=== PATIENT | female | born 1980 ===

== ENCOUNTER 2025-06-02 14:00 | Outpatient (AMB) | payer OTHER, SELFPAY ==
--- OUTSIDE RECORDS SUMMARY | 2025-06-02 15:19 | XMS_ITS | Clinical Summary ---
Author Organization [facility] [address] [facility] lding Address [address] [place] [address] Phone Care Team Providers Care Director Of Social Media Marketing Name Role Phone Delmis English MD Primary Care Prov ider Allergies Active Allergy Reactions Criticality Noted Date Comments House Dust Runny nose 07/26/2022 Pollen Extracts Runny nose 01/04/2021 Seasonal allergies Sulfamethoxazole-Trimetho prim Dermatitis,Rash 06/14/2014 Medications loratadine (CLARITIN) 10 mg tablet Take 10 mg by mouth daily. Active UNABLE TO FIND Inject as directed. Active cetirizine (ZyrTEC) 10 mg tablet Take 10 mg by mouth daily. Active citalopram (CeleXA) 20 mg tablet Take 1 tablet (20 mg total) by mouth 1 (one) time each day. 90 each 1 02/21/20 25 025 Active ferrous sulfate 325 mg (65 mg iron) EC tablet TAKE 1 TABLET (325 MG TOTAL) BY MOUTH DAILY WITH BREAKFAST DO NOT CRUSH, CHEW, OR SPLIT 90 tablet 1 06/01/20 25 Active ferrous sulfate 325 mg (65 mg iron) EC tablet Take 1 tablet (325 mg total) by mouth 1 (one) time each day with breakfast. Do not crush, chew, or split. 30 each 2 03/10/20 25 025 Discontinued Active Problems Problem Noted Date Diagnosed Date Iron deficiency anemia due to chronic blood loss 03/13/2025 COVID-19 virus infection 01/25/2022 Overview (08/11/2024): 01/23/2022 Seasonal allergies 06/10/2021 Depression 07/04/2019 Anxiety 07/04/2019 Encounters Date Type Department Care Team Description 03/20/2025 12:53 PM EDT - 03/20/2025 11:59 PM EDT Hospital Encounter [facility] [address] [place] [phone] Neema García MD Iron deficiency anemia due to chronic blood loss (Primary Dx) Discharge Disposition: Home or Self Care 03/13/2025 2:00 PM EDT - 03/13/2025 11:59 PM EDT Hospital Encounter [facility] [address] [place] [phone] Iron deficiency anemia due to chronic blood loss (Primary Dx) Discharge Disposition: Home or Self Care 03/13/2025 1:30 PM EDT Office Visit [facility] Hematology Oncology [address] [place] [phone] Demetra Hernandez PA Iron deficiency anemia due to chronic blood loss (Primary Dx); Menorrhagia with regular cycle; Gingivitis 03/12/2025 Telephone [facility] Hematology Oncology [address] [place] [phone] Demetra Hernandez PA 03/03/2025 4:15 PM EDT Lab Draw Station - [address] [phone] Anemia, unspecified type from Last 3 Months Immunizations Name Administration Dates Next Due Influenza Quadravalent, MDCK , 0.5ml, preservative free (Flucelvax) 6mo and older 07/26/2022,07/01/2020 Influenza trivalent, 0.5mL, preservative free (Fluarix; FluLaval; Fluzone) ages 6mo and older (Afluria) 3 years and older 07/04/2023,07/20/2019 Influenza trivalent, with pr eservative (Fluzone; Afluria) 6mo and older 08/13/2014 Pfizer SARS-CoV-2 COVID-19, mRNA, LNP-S, preservative free 01/31/2021,01/09/2021 Tdap Tetanus diptheria acell ular pertussis (Boostrix; Adacel) 7yo and older 02/07/2022 Surgical History Surgery Date Site/Laterality Comments APPENDECTOMY 1994 PROCEDURE: [place] APPENDECTOMY EYE SURGERY 2009 PROCEDURE: [place] TRABECULOPLASTY BY LASER SURGERY Medical History Medical History Date Comments Allergies 06/10/2021 DX:Allergies Granuloma annulare DX:Granuloma annulare Family History Medical History Relation Name Comments Eczema Brother Throat cancer Father Coronary artery disease Maternal Grandfather stroke, macular degeneration Stroke Maternal Grandmother Thyroid disease Maternal Grandmother Other: anxiety Mother joint problem s Prostate cancer Other cousin Relation Name Status Comments Brother Father Maternal Grandfather Alive Maternal Grandmother Mother Alive Other cousin Alive Social History Tobacco Use Types Packs/Day Years Used Date Smoking Tobacco: Never Smokeless Tobacco: Never Tobacco Cessation:Counseling Given: No Alcohol Use Standard Drinks/Week Comments Yes 0 (1 standard drink = 0.6 oz pur e alcohol) Comments No Sex and Gender Information Value Date Recorded Sex Assigned at Female 03/13/2025 2:10 PM EDT Legal Sex Female 8:37 PM EST Gender Identity Female 03/11/2025 6:45 PM EDT Sexual Orientation Straight 03/13/2025 2: 10 PM EDT Obstetrics History Last Filed Vital Signs Vital Sign Reading Time Taken Comments Blood Pressure 104/60 03/20/2025 1:04 PM EDT Pulse 66 03/20/2025 1:04 PM EDT Temperature 37 C (98.6 F) 03/20/2025 1:04 PM EDT Respiratory Rate 16 03/20/2025 1:04 PM EDT Oxygen Saturation 99% 03/20/2025 1:04 PM EDT Inhaled Oxygen Concentration - - Weight 68 kg (150 lb) 03/13/2025 2:15 PM EDT Height 157.5 cm (5' 2 ) 03/13/2025 1:35 PM EDT Body Mass Index 27.44 03/13/2025 1:35 PM EDT Plan of Treatment Upcoming Encounters Date Type Department Care Team (Late st Contact Info) Description 06/08/2025 9:30 AM EDT Office Visit [facility] Hematology Oncology [address] [place] [phone] Demetra Hernandez PA [address] [place] [address] 08/24/2025 12:15 PM EST Office Visit Adult Medicine - [place] [address] [place] [phone] Janeen Vivas PA [address] [place] [address] Health Maintenance Due Date Last Done Comments Breast Cancer Screening 1981 Hepatitis B Vaccines (1 of 3 - 19+ 3-dose series) 02/18/2000 HIV Screening 09/23/2022 Hepatitis C Screening 09/23/2022 Social Influencers of Health Screening 09/23/2022 Cervical Cancer Screening: Pap Smear 11/30/2023 11/30/2020 COVID-19 Vaccine ( season) 2024 07/04/2023, 08/11/2021, 01/31/2021, Additional history exists Depression Screening 10/15/2024 Influenza Vaccine (#1) 2025 , 07/26/2022, 07/01/2020, Additional history exists Cholesterol Screening (Lipid Panel) 02/23/2030 02/23/2025, 02/08/2024, 02/08/2024 DTaP,Tdap,and Td Vaccines (2 - Td or Tdap) 02/08/2032 02/07/2022 HIB Vaccines Aged Out No longer eligi ble based on patient's age to complete this topic HPV Vaccines Aged Out No longer eligi ble based on patient's age to complete this topic Hepatitis A Vaccines Aged Out No long er eligible based on patient's age to complete this topic IPV Vaccines Aged Out No longer eligi ble based on patient's age to complete this topic MMR Vaccines Aged Out No longer eligi ble based on patient's age to complete this topic Meningococcal ACWY Vaccine Aged Out N o longer eligible based on patient's age to complete this topic Meningococcal B Vaccine Aged Out No l onger eligible based on patient's age to complete this topic Pneumococcal Vaccine: Pediatrics (0 to 5 Years) and At-Risk Patients (6 to 49 Years) Aged Out No longer eligible based on patient's age to complete this topic RSV Immunization Patients Under 20 months Aged Out No longer eligible based on patient's age to complete this topic Varicella Vaccines Aged Out No longer eligible based on patient's age to complete this topic Procedures Procedure Name Priority Date/Time Associated Diagnosis Comments FERRITIN Routine 03/03/2025 4:14 PM EDT Anemia, unspecified type IRON AND TIBC Routine 03/03/2025 4:14 PM EDT Anemia, unspecified type LIPID PANEL WITH REFLEX TO DIRECT LDL Routine 02/23/2025 9:06 AM EDT Routine general medical examination at a [facility] HM PAP SMEAR Routine 11/30/2020 from Last 3 Months or Most Recently Relevant to Health Maintenance Results * (ABNORMAL) Iron and TIBC (03/03/2025 4:14 PM EDT) Iron 22(L) 40 - 150 mcg/dL LAB CHEMISTRY METHOD 03/03/2025 6:32 PM EDT [facility] TIBC 445 250 - 450 mcg/dL LAB CHEMISTRY METHOD 03/03/2025 6:32 PM EDT [facility] Iron Saturation 5(L) 15 - 50 % LAB CHEMISTRY METHOD 03/03/2025 6:32 PM EDT [facility] Blood Venous blood specimen / Unknown Venipuncture / Unknown 03/03/2025 4:14 PM EDT 03/03/2025 4:14 PM EDT us Janeen PINEDA LAB BLOOD ORDERABLES Final Result [facility] [address] [place] [address], [place] [phone] * (ABNORMAL) Ferritin (03/03/2025 4:14 PM EDT) Ferritin 5(L) 8 - 252 ng/mL LAB CHEMISTRY METHOD 03/03/2025 6:40 PM EDT [facility] Blood Venous blood specimen / Unknown Venipuncture / Unknown 03/03/2025 4:14 PM EDT 03/03/2025 4:14 PM EDT us Janeen PINEDA LAB BLOOD ORDERABLES Final Result [facility] [address] [place] [address], [place] [phone] * (ABNORMAL) Lipid panel with reflex to direct LDL (02/23/2025 9:06 AM EDT) Cholesterol 209(H) 0 - 200 mg/dL LAB CHEMISTRY METHOD 02/23/2025 1:37 PM EDT [facility] Triglycerides 63 0 - 150 mg/dL LAB CHEMISTRY METHOD 02/23/2025 1:37 PM EDT [facility] HDL 65 >=40 mg/dL LAB CHEMISTRY METHOD 02/23/2025 1:37 PM EDT [facility] LDL Calculated 131(H) 0 - 100 mg/dL LAB CHEMISTRY METHOD 02/23/2025 1:37 PM EDT [facility] VLDL Cholesterol Darryl 12.6 mg/dL LAB CHEMISTRY METHOD 02/23/2025 1:37 PM EDT [facility] Non HDL Chol. (LDL+VLDL) 144 <145 mg/dL LAB CHEMISTRY METHOD 02/23/2025 1:37 PM EDT [facility] Chol/HDL Ratio 3.2 0.0 - 4.4 LAB CHEMISTRY METHOD [facility] Blood Venous blood specimen / Unknown Venipuncture / Unknown 02/23/2025 9:06 AM EDT 02/23/2025 9:10 AM EDT us Janeen PINEDA LAB BLOOD ORDERABLES Final Result [facility] [address] [place] [address], * Pap Smear (11/30/2020) HM Pap smear abstracted,no interpretation us Historical Provider MD HEALTH MAINTENANCE Final Result from Last 3 Months or Most Recently Relevant to Health Maintenance Insurance [facility] Care Teams Director Of Social Media Marketing Relationship Specialty Start Date End Date Delmis English MD [address] [place] [address] [place] [address] PCP - General Internal Medicine 05/20/21
== END 2025-06-02 14:04 | disposition home or self-care (01) ==
LOC: HO.HMGAL 14:00
PROVIDERS: PCP Internal Medicine; Visit Provider Registered Nurse Emergency
DX: J30.89 Other allergic rhinitis (principal)
CPT/HCPCS: 95117; 95165

== ENCOUNTER 2025-07-08 15:40 | Outpatient (AMB) | payer OTHER, SELFPAY ==
--- OUTSIDE RECORDS SUMMARY | 2025-07-08 17:54 | XMS_ITS | Clinical Summary ---
Author Organization [facility] [address] [facility] lding Address [address] [place] [phone] Phone Care Team Providers Care Gutter Mouth Cutter Name Role Phone Delmis English MD Primary Care Prov ider Allergies Active Allergy Reactions Criticality Noted Date Comments House Dust Runny nose 07/26/2022 Pollen Extracts Runny nose 01/04/2021 Seasonal allergies Sulfamethoxazole-Trimetho prim Dermatitis,Rash 06/14/2014 Medications cetirizine (ZyrTEC) 10 mg tablet Take 10 mg by mouth daily. Active citalopram (CeleXA) 20 mg tablet Take 1 tablet (20 mg total) by mouth 1 (one) time each day. 90 each 1 5 08/19/20 25 Active levonorgestreL (MIRENA) 21 mcg/24hr (up to 8 yrs) 52 mg IUD 1 Device (1 each total) by intrauterine route 1 (one) time. HORMONAL IUD INSERTED ON 06/03/25 Active ferrous sulfate 325 mg (65 mg iron) EC tablet Take 1 tablet (325 mg total) by mouth 1 (one) time each day with breakfast. Do not crush, chew, or split. 90 tablet 1 5 12/05/19 26 Active Active Problems Problem Noted Date Diagnosed Date Iron deficiency anemia due to chronic blood loss 03/13/2025 COVID-19 virus infection 01/25/2022 Overview (08/11/2024): 01/23/2022 Seasonal allergies 06/10/2021 Depression 07/04/2019 Anxiety 07/04/2019 Encounters Date Type Department Care Team Description 06/08/2025 9:30 AM EDT Office Visit [facility] Hematology Oncology [address] [place] [phone] Demetra Hernandez PA Iron deficiency anemia due to chronic blood loss (Primary Dx); Menorrhagia with regular cycle from Last 3 Months Immunizations Name Administration Dates Next Due Influenza Quadravalent, MDCK , 0.5ml, preservative free (Flucelvax) 6mo and older 07/26/2022,07/01/2020 Influenza trivalent, 0.5mL, preservative free (Fluarix; FluLaval; Fluzone) ages 6mo and older (Afluria) 3 years and older 07/04/2023,07/20/2019 Influenza trivalent, with pr eservative (Fluzone; Afluria) 6mo and older 08/13/2014 [employer] SARS-CoV-2 COVID-19, mRNA, LNP-S, preservative free 01/31/2021,01/09/2021 Tdap Tetanus diptheria acell ular pertussis (Boostrix; Adacel) 7yo and older 02/07/2022 Surgical History Surgery Date Site/Laterality Comments APPENDECTOMY 1994 PROCEDURE: [place] APPENDECTOMY EYE SURGERY 2009 PROCEDURE: [place] TRABECULOPLASTY BY LASER SURGERY Medical History Medical [...] Sign Reading Time Taken Comments Blood Pressure 97/61 06/08/2025 9:31 AM EDT Pulse 70 06/08/2025 9:31 AM EDT Temperature 36.7 C (98.1 F) 06/08/2025 9:31 AM EDT Respiratory Rate 16 03/20/2025 1:04 PM EDT Oxygen Saturation 100% 06/08/2025 9:31 AM EDT Inhaled Oxygen Concentration - - Weight 70.3 kg (155 lb) 06/08/2025 9:31 AM EDT Height 157.5 cm (5' 2 ) 03/13/2025 1:35 PM EDT Body Mass Index 28.35 03/13/2025 1:35 PM EDT Plan of Treatment Upcoming Encounters Date Type Department Care Team (Late st Contact Info) Description 08/24/2025 12:30 PM EST Office Visit Adult Medicine [facility] [address] [place] [phone] Janeen Vivas PA [address] [place] [address] 12/14/2025 2:00 PM EST Office Visit [facility] Hematology Oncology [address] [place] [phone] Demetra Hernandez PA [address] [place] [address] Health Maintenance Due Date Last Done Comments Breast Cancer Screening 1981 Hepatitis B Vaccines (1 of 3 - 19+ 3-dose series) 02/18/2000 HIV Screening 09/23/2022 Hepatitis C Screening 09/23/2022 Social Influencers of Health Screening 09/23/2022 Cervical Cancer Screening: Pap Smear 11/30/2023 11/30/2020 Depression Screening 10/15/2024 COVID-19 Vaccine ( season) 2025 07/04/2023, 08/11/2021, 01/31/2021, Additional history exists Influenza Vaccine (#1) 2025 , 07/26/2022, 07/01/2020, Additional history exists Cholesterol Screening (Lipid Panel) 02/23/2030 02/23/2025, 02/08/2024, 02/08/2024 DTaP,Tdap,and Td Vaccines (2 - Td or Tdap) 02/08/2032 02/07/2022 RSV Immunization Adult Patients (1 - 1-dose 75+ series) 02/18/2056 HIB Vaccines Aged Out No longer eligi [...] Procedure Name Priority Date/Time Associated Diagnosis Comments CBC WITH AUTO DIFFERENTIAL Routine 06/03/2025 4:15 PM EDT Menorrhagia with regular cycle Iron deficiency anemia due to chronic blood loss RETICULOCYTE COUNT Routine 06/03/2025 4: 15 PM EDT Menorrhagia with regular cycle Iron deficiency anemia due to chronic blood loss IRON AND TIBC Routine 06/03/2025 4:15 PM EDT Menorrhagia with regular cycle Iron deficiency anemia due to chronic blood loss FERRITIN Routine 06/03/2025 4:15 PM EDT Menorrhagia with regular cycle Iron deficiency anemia due to chronic blood loss CBC AND DIFFERENTIAL Routine 06/03/2025 4:15 PM EDT Menorrhagia with regular cycle Iron deficiency anemia due to chronic blood loss LIPID PANEL WITH REFLEX TO DIRECT LDL Routine 02/23/2025 9:06 AM EDT Routine general medical examination at a health care facility HM PAP SMEAR Routine 11/30/2020 from Last 3 Months or Most Recently Relevant to Health Maintenance Results * (ABNORMAL) CBC auto differential (06/03/2025 4:15 PM EDT) WBC 6.6 4.8 - 10.8 K/mcL LAB HEMETOLOGY METHOD 06/03/2025 6:15 PM EDT [facility] RBC 4.20 3.80 - 4.80 M/mcL LAB HEMETOLOGY METHOD 06/03/2025 6:15 PM EDT [facility] Hemoglobin 11.9 11.5 - 16.0 g/dL LAB HEMETOLOGY METHOD 06/03/2025 6:15 PM EDT [facility] Hematocrit 36.7 35.0 - 47.0 % LAB HEMETOLOGY METHOD 06/03/2025 6:15 PM EDT [facility] MCV 88.2 79.0 - 98.0 FL LAB HEMETOLOGY METHOD 06/03/2025 6:15 PM EDT [facility] MCH 28.6 27.0 - 32.0 pcg LAB HEMETOLOGY METHOD 06/03/2025 6:15 PM EDT [facility] MCHC 32.4 32.0 - 37.0 g/dL LAB HEMETOLOGY METHOD 06/03/2025 6:15 PM EDT [facility] RDW 15.6(H) 11.0 - 15.0 % LAB HEMETOLOGY METHOD 06/03/2025 6:15 PM EDT [facility] Platelets 275 130 - 400 K/mcL LAB HEMETOLOGY METHOD 06/03/2025 6:15 PM EDT [facility] MPV 10.8 7.0 - 11.0 FL LAB HEMETOLOGY METHOD 06/03/2025 6:15 PM EDT [facility] NRBC 0.0 <1.0 % LAB HEMETOLOGY METHOD 06/03/2025 6:15 PM EDT [facility] NRBC Absolute 0.00 <0.10 K/mcL LAB HEMETOLOGY METHOD 06/03/2025 6:15 PM EDT [facility] Neutrophils Relative 53.7 % LAB HEMETOLOGY METHOD 06/03/2025 6:15 PM EDT [facility] Lymphocytes Relative 35.1 % LAB HEMETOLOGY METHOD 06/03/2025 6:15 PM EDT [facility] Monocytes Relative 6.4 % LAB HEMETOLOGY METHOD 06/03/2025 6:15 PM EDT [facility] Eosinophils Relative 4.3 % LAB HEMETOLOGY METHOD 06/03/2025 6:15 PM EDT [facility] Basophils Relative 0.3 % LAB HEMETOLOGY METHOD 06/03/2025 6:15 PM EDT [facility] Immature Granulocytes Relative 0.2 % LAB HEMETOLOGY METHOD 06/03/2025 6:15 PM EDT [facility] Neutrophils Absolute 3.53 1.50 - 7.00 K/mcL LAB HEMETOLOGY METHOD 06/03/2025 6:15 PM EDT [facility] Lymphocytes Absolute 2.30 1.00 - 5.00 K/mcL LAB HEMETOLOGY METHOD 06/03/2025 6:15 PM EDT [facility] Monocytes Absolute 0.42 0.20 - 1.00 K/mcL LAB HEMETOLOGY METHOD 06/03/2025 6:15 PM EDT [facility] Eosinophils Absolute 0.28 0.00 - 0.50 K/[facility] LAB HEMETOLOGY METHOD 06/03/2025 6:15 PM EDT [facility] Basophils Absolute 0.02 0.00 - 0.20 K/[facility] LAB HEMETOLOGY METHOD 06/03/2025 6:15 PM EDT [facility] Immature Granulocytes Absolute 0.01 0.00 - 0.03 K/[facility] LAB HEMETOLOGY METHOD 06/03/2025 6:15 PM EDT [facility] Blood Venous blood specimen / Unknown Venipuncture / Unknown 06/03/2025 4:15 PM EDT 06/03/2025 4:15 PM EDT us Demetra PINEDA LAB BLOOD ORDERABLES Final Re sult Performing Organization Address City/[facility]/ZIP Co de Phone Number [facility] [address] [place] [address], [place] [phone] * Iron and TIBC (06/03/2025 4:15 PM EDT) Iron 64 40 - 150 mcg/dL LAB CHEMISTRY METHOD 06/03/2025 5:59 PM EDT [facility] TIBC 313 250 - 450 mcg/dL LAB CHEMISTRY METHOD 06/03/2025 5:59 PM EDT [facility] Iron Saturation 20 15 - 50 % LAB CHEMISTRY METHOD 06/03/2025 5:59 PM EDT [facility] Blood Venous blood specimen / Unknown Venipuncture / Unknown 06/03/2025 4:15 PM EDT 06/03/2025 4:15 PM EDT us Demetra PINEDA LAB BLOOD ORDERABLES Final Re sult [facility] [address] [place] [address], [place] [phone] * Reticulocyte count (06/03/2025 4:15 PM EDT) Retic Ct Abs 0.030 0.030 - 0.090 M/mcL LAB HEMETOLOGY METHOD 06/03/2025 6:15 PM EDT [facility] Retic Ct Pct 0.7 0.7 - 1.7 % LAB HEMETOLOGY METHOD 06/03/2025 6:15 PM EDT [facility] Immature Retic Fract 2.5 2.3 - 15.9 % LAB HEMETOLOGY METHOD 06/03/2025 6:15 PM EDT [facility] Reticulocyte Hemoglobin 33.5 >29.0 pcg LAB HEMETOLOGY METHOD 06/03/2025 6:15 PM EDT [facility] Blood Venous blood specimen / Unknown Venipuncture / Unknown 06/03/2025 4:15 PM EDT 06/03/2025 4:15 PM EDT Demetra PINEDA LAB BLOOD ORDERABLES Final Re sult [facility] [address] [place] [address], [place] [phone] * Ferritin (06/03/2025 4:15 PM EDT) [facility] Ferritin 33 8 - 252 ng/mL LAB CHEMISTRY METHOD 06/03/2025 5:54 PM EDT [facility] Blood Venous blood specimen / Unknown Venipuncture / Unknown 06/03/2025 4:15 PM EDT 06/03/2025 4:15 PM EDT Demetra PINEDA LAB BLOOD ORDERABLES Final Re sult [facility] [address] [place] [address], [place] [phone] * (ABNORMAL) Lipid panel with reflex to direct LDL (02/23/2025 9:06 AM EDT) Cholesterol 209(H) 0 - 200 mg/dL LAB CHEMISTRY METHOD 02/23/2025 1:37 PM EDT [facility] Triglycerides 63 0 - 150 mg/dL LAB CHEMISTRY METHOD 02/23/2025 1:37 PM EDT [facility] HDL 65 >=40 mg/dL LAB CHEMISTRY METHOD 02/23/2025 1:37 PM EDT [facility] LDL Calculated 131(H) 0 - 100 mg/dL LAB CHEMISTRY METHOD 02/23/2025 1:37 PM EDT [facility] VLDL Cholesterol Darryl 12.6 mg/dL LAB CHEMISTRY METHOD 02/23/2025 1:37 PM EDT [facility] Non HDL Chol. (LDL+VLDL) 144 <145 mg/dL LAB CHEMISTRY METHOD 02/23/2025 1:37 PM EDT [facility] Chol/HDL Ratio 3.2 0.0 - 4.4 LAB CHEMISTRY METHOD 02/23/2025 1:37 PM EDT [facility] Blood Venous blood specimen / Unknown Venipuncture / Unknown 02/23/2025 9:06 AM EDT 02/23/2025 9:10 AM EDT Janeen PINEDA LAB BLOOD ORDERABLES Final Result [facility] [address] [place] [address], [place] [phone] * Hm Pap Smear (11/30/2020) Pap smear abstracted,no interpretation Historical Provider HEALTH MAINTENANCE Final Result from Last 3 Months or Most Recently Relevant to Health Maintenance Insurance [facility] Care Teams Gutter Mouth Cutter Relationship Specialty Start Date End Date Delmis English MD [address] [place] [address] [place] [id number] PCP - General Internal Medicine 05/20/21
== END 2025-07-08 15:41 | disposition home or self-care (01) ==
LOC: HO.HMGAL 15:40
PROVIDERS: PCP Internal Medicine; Visit Provider Registered Nurse Emergency
DX: J30.89 Other allergic rhinitis (principal)
CPT/HCPCS: 95117; 95165

== ENCOUNTER 2025-07-29 16:22 | Outpatient (AMB) | payer OTHER, SELFPAY ==
--- OUTSIDE RECORDS SUMMARY | 2025-07-29 19:27 | XMS_ITS | Clinical Summary ---
Author Organization [facility] [address] [facility] Address [address] [facility] [place] [address] Phone Care Team Providers Care Clinical Writer Name Role Phone Delmis English MD Primary [...] Description 06/08/2025 9:30 AM EDT Office Visit [facility] Hematology Oncology [address] [place] [phone] Demetra Hernandez PA Iron deficiency anemia due to chronic blood loss (Primary Dx); Menorrhagia with regular cycle from Last 3 Months Immunizations Immunization Administration Dates Next Due Influenza Quadravalent, MDCK , 0.5ml, preservative free (Flucelvax) 6mo and older 07/26/2022,07/01/2020 Influenza trivalent, 0.5mL, preservative free (Fluarix; FluLaval; Fluzone) ages 6mo and older (Afluria) 3 years and older 07/04/2023,07/20/2019 Influenza trivalent, with pr eservative (Fluzone; Afluria) 6mo and older 08/13/2014 What's Hot SARS-CoV-2 COVID-19, mRNA, LNP-S, preservative free 01/31/2021,01/09/2021 Tdap Tetanus diptheria acell ular pertussis (Boostrix; Adacel) 7yo and older 02/07/2022 Surgical History Surgery Date Site/Laterality Comments APPENDECTOMY 1994 PROCEDURE: [place] APPENDECTOMY EYE SURGERY 2009 PROCEDURE: [place] TRABECULOPLASTY BY LASER SURGERY Medical History Medical [...] 12:30 PM EST Office Visit Adult Medicine [facility] [address] [place] [address] Janeen Vivas PA [address] [place] [address] 12/14/2025 2:00 PM EST Office Visit [facility] Hematology Oncology [address] [place] [phone] Demetra Hernandez PA [address] [place] [address] Health Maintenance Due Date Last Done Comments Breast Cancer Screening 1981 Hepatitis B Vaccines (1 of 3 - 19+ 3-dose series) 02/18/2000 HPV Vaccines (1 - 3-dose SCDM series) 02/18/2008 HIV Screening 09/23/2022 Hepatitis C Screening 09/23/2022 [...] LAB HEMETOLOGY METHOD 06/03/2025 6:15 PM EDT [facility] RBC 4.20 3.80 - 4.80 M/mcL LAB HEMETOLOGY METHOD 06/03/2025 6:15 PM EDT [facility] Hemoglobin 11.9 11.5 - 16.0 g/dL LAB HEMETOLOGY METHOD 06/03/2025 6:15 PM EDT [facility] Hematocrit 36.7 35.0 - 47.0 % LAB HEMETOLOGY METHOD 06/03/2025 6:15 PM EDT [facility] MCV 88.2 79.0 - 98.0 FL LAB HEMETOLOGY METHOD 06/03/2025 6:15 PM EDT [facility] MCH 28.6 27.0 - 32.0 pcg LAB HEMETOLOGY METHOD 06/03/2025 6:15 PM EDT [facility] MCHC 32.4 32.0 - 37.0 g/dL LAB HEMETOLOGY METHOD 06/03/2025 6:15 PM EDT [facility] RDW 15.6(H) 11.0 - 15.0 % LAB HEMETOLOGY METHOD 06/03/2025 6:15 PM EDT [facility] Platelets 275 130 - 400 K/mcL LAB HEMETOLOGY METHOD 06/03/2025 6:15 PM EDT [facility] MPV 10.8 7.0 - 11.0 FL LAB HEMETOLOGY METHOD 06/03/2025 6:15 PM EDT [facility] NRBC 0.0 <1.0 % LAB HEMETOLOGY METHOD 06/03/2025 6:15 PM EDT [facility] NRBC Absolute 0.00 <0.10 K/mcL LAB HEMETOLOGY METHOD 06/03/2025 6:15 PM EDT [facility] Neutrophils Relative 53.7 % LAB HEMETOLOGY METHOD 06/03/2025 6:15 PM EDT [facility] Lymphocytes Relative 35.1 % LAB HEMETOLOGY METHOD 06/03/2025 6:15 PM EDT [facility] Monocytes Relative 6.4 % LAB HEMETOLOGY METHOD 06/03/2025 6:15 PM EDT [facility] Eosinophils Relative 4.3 % [facility] Bas[facility] Relative 0.3 % LAB HEMETOLOGY METHOD 06/03/2025 6:15 PM EDT [facility] Immature Granulocytes Relative 0.2 % LAB HEMETOLOGY METHOD 06/03/2025 6:15 PM EDT [facility] Neutrophils Absolute 3.53 1.50 - 7.00 K/mcL LAB HEMETOLOGY METHOD 06/03/2025 6:15 PM EDT [facility] Lymphocytes Absolute 2.30 1.00 - 5.00 K/mcL LAB HEMETOLOGY METHOD 06/03/2025 6:15 PM EDT [facility] Monocytes Absolute 0.42 0.20 - 1.00 K/mcL LAB HEMETOLOGY METHOD 06/03/2025 6:15 PM EDT [facility] Eosinophils Absolute 0.28 0.00 - 0.50 K/[facility] LAB HEMETOLOGY METHOD 06/03/2025 6:15 PM EDT [facility] Basophils Absolute 0.02 0.00 - 0.20 K/[facility] LAB HEMETOLOGY METHOD 06/03/2025 6:15 PM EDT [facility] Immature Granulocytes Absolute 0.01 0.00 - 0.03 K/[facility] LAB HEMETOLOGY METHOD 06/03/2025 6:15 PM EDT [facility] Blood Venous blood specimen / Unknown Venipuncture / Unknown 06/03/2025 4:15 PM EDT 06/03/2025 4:15 PM EDT us Demetra PINEDA LAB BLOOD ORDERABLES Final Re sult Performing Organization Address City/[facility]/ZIP Co de Phone Number [facility] [address] [place] [address], [place] [phone] * Iron and TIBC (06/03/2025 4:15 PM EDT) Iron 64 40 - 150 mcg/dL LAB CHEMISTRY METHOD 06/03/2025 5:59 PM EDT [facility] TIBC 313 250 - 450 mcg/dL LAB CHEMISTRY METHOD 06/03/2025 5:59 PM EDT [facility] Iron Saturation 20 15 - 50 % LAB CHEMISTRY METHOD 06/03/2025 5:59 PM EDT [facility] Blood Venous blood specimen / Unknown Venipuncture / Unknown 06/03/2025 4:15 PM EDT 06/03/2025 4:15 PM EDT Demetra PINEDA LAB BLOOD ORDERABLES Final Re sult [facility] [address] [place] [address], [place] [phone] * Reticulocyte count (06/03/2025 4:15 PM EDT) Retic Ct Abs 0.030 0.030 - 0.090 M/mcL LAB HEMETOLOGY METHOD 06/03/2025 6:15 PM EDT [facility] Retic Ct Pct 0.7 0.7 - 1.7 % LAB HEMETOLOGY METHOD 06/03/2025 6:15 PM EDT [facility] Immature Retic Fract 2.5 2.3 - 15.9 % LAB HEMETOLOGY METHOD 06/03/2025 6:15 PM EDT [facility] Reticulocyte Hemoglobin 33.5 >29.0 pcg LAB HEMETOLOGY METHOD 06/03/2025 6:15 PM EDT [facility] Blood Venous blood specimen / Unknown Venipuncture / Unknown 06/03/2025 4:15 PM EDT 06/03/2025 4:15 PM EDT Demetra PINEDA LAB BLOOD ORDERABLES Final Re sult [facility] [address] [place] [address], [place] [phone] * Ferritin (06/03/2025 4:15 PM EDT) [facility] Ferritin 33 8 - 252 ng/mL LAB CHEMISTRY METHOD 06/03/2025 5:54 PM EDT [facility] Blood Venous blood specimen / Unknown Venipuncture / Unknown 06/03/2025 4:15 PM EDT 06/03/2025 4:15 PM EDT Demetra PINEDA LAB BLOOD ORDERABLES Final Re sult [facility] [address] [place] [address], [place] [phone] * (ABNORMAL) Lipid panel with reflex to direct LDL (02/23/2025 9:06 AM EDT) Cholesterol 209(H) 0 - 200 mg/dL LAB CHEMISTRY METHOD 02/23/2025 1:37 PM EDT [facility] Triglycerides 63 0 - 150 mg/dL LAB CHEMISTRY METHOD 02/23/2025 1:37 PM EDT [facility] HDL 65 >=40 mg/dL LAB CHEMISTRY METHOD 02/23/2025 1:37 PM EDT [facility] LDL Calculated 131(H) 0 - 100 mg/dL LAB CHEMISTRY METHOD 02/23/2025 1:37 PM EDT [facility] VLDL Cholesterol Darryl 12.6 mg/dL LAB CHEMISTRY METHOD 02/23/2025 1:37 PM EDT [facility] Non HDL Chol. (LDL+VLDL) 144 <145 mg/dL LAB CHEMISTRY METHOD 02/23/2025 1:37 PM EDT [facility] Chol/HDL Ratio 3.2 0.0 - 4.4 LAB CHEMISTRY METHOD 02/23/2025 1:37 PM EDT [facility] Blood Venous blood specimen / Unknown Venipuncture / Unknown 02/23/2025 9:06 AM EDT 02/23/2025 9:10 AM EDT Janeen PINEDA LAB BLOOD ORDERABLES Final Result [facility] [address] [place] [address], [place] [phone] * Hm Pap Smear (11/30/2020) Pap smear abstracted,no interpretation Historical Provider HEALTH MAINTENANCE Final Result from Last 3 Months or Most Recently Relevant to Health Maintenance Insurance [facility] Care Teams Clinical Writer Relationship Specialty Start Date End Date Delmis English MD [address] [place] [address] [place] PCP - General Internal Medicine 05/20/21
== END 2025-07-29 16:23 | disposition home or self-care (01) ==
LOC: HO.HMGAL 16:22
PROVIDERS: PCP Internal Medicine; Visit Provider Registered Nurse Emergency
DX: J30.89 Other allergic rhinitis (principal)
CPT/HCPCS: 95117; 95165

== ENCOUNTER 2025-08-19 15:57 | Outpatient (AMB) | payer OTHER, SELFPAY ==
--- OUTSIDE RECORDS SUMMARY | 2025-08-18 12:30 | XMS_ITS | Encounter Summary ---
Author Organization [facility] Address [address] [place] [address] Care Team Providers Care Log Yard Derrick Operator Name Role Phone Delmis English MD Primary Care Prov ider Reason for Visit * Reason Comments Follow-up Encounter Details Date Type Department Care Team ([facility] st Contact Info) Description 08/18/2025 12:30 PM EST Office Visit Adult Medicine [facility] [address] [place] [address] Janeen Vivas PA [address] [place] [address] Anxiety (Primary Dx); Mild episode of recurrent major depressive disorder (CMS/HCC V24); Iron deficiency anemia due to chronic blood loss Social History Tobacco Use Types Packs/Day Years Used Date Smoking Tobacco: Never Smokeless Tobacco: Never Alcohol Use Standard Drinks/Week Comments Yes 0 (1 standard drink = 0.6 oz pur e alcohol) Comments No Sex and Gender Information Value Date Recorded Sex Assigned at Female 03/13/2025 2:10 PM EDT Legal Sex Female 8:37 PM EST Gender Identity Female 03/11/2025 6:45 PM EDT Sexual Orientation Straight 03/13/2025 2: 10 PM EDT documented as of this encounter Last Filed Vital Signs Vital Sign Reading Time Taken Comments Blood Pressure 100/56 08/18/2025 12:36 PM EST Pulse 98 08/18/2025 12:36 PM EST Temperature 36.9 C (98.4 F) 08/18/2025 12:36 PM EST Respiratory Rate - - Oxygen Saturation 99% 08/18/2025 12:36 PM EST Inhaled Oxygen Concentration - - Weight 68.7 kg (151 lb 6.4 oz) 08/18/2025 12:36 PM EST Height 157.5 cm (5' 2 ) 08/18/2025 12:36 PM EST Body Mass Index 27.69 08/18/2025 12:36 PM EST documented in this encounter Ordered Prescriptions Prescription Sig Dispense Quantity Refills Last Filled Start Date End Date citalopram (CeleXA) 20 mg tablet Take 1 tablet (20 mg total) by mouth 1 (one) time each day. 90 each 1 08/18/2025 02/14/2026 documented in this encounter Progress Notes * MIRIAM Reyna - 08/18/2025 12:30 PM EST CHIEF COMPLAINT: Follow-up IDENTIFIER: Humera Vee is a 45 y.o. old female. HPI: History of Present Illness The patient presents for a medication review. She has a history of anxiety and depression, currently managed with Celexa 20 mg. She reports positive response to her medication and wishes to maintain her current treatment plan. In February 2025, lab work revealed anemia. She received two infusions in February and March 2025, significantly improving her condition. Heavy menstrual bleeding likely contributed to her anemia. Her copper IUD was removed in April 2025 and replaced with a Liletta IUD on 06/03/2025. A recent hematology visit in May 2025 showed resolved anemia with normal iron, ferritin, CBC, hematocrit, and hemoglobin levels. She was prescribed oral iron supplements to be taken throughout her menstrual cycle until it ceases. She has been taking these supplements daily but suspects low iron levels this week. She experienced light menstrual flow today after a 4-day absence. She used to practice natural family planning and brought her chart for review. She is scheduled for lab work recheck next month and in 6 months, with a follow-up appointment thereafter. She is up to date with her mammograms, with the most recent on 04/25/2025. GYNECOLOGICAL HISTORY: Light flow today after a 4-day absence PAST SURGICAL HISTORY: Copper IUD removal in April 2025 Liletta IUD insertion on 06/03/2025 FAMILY HISTORY Her mother has leg swelling. ROS: GENERAL: No malaise, significant weight loss or fever RESPIRATORY: No cough, wheezing or shortness of breath CARDIOVASCULAR: No chest pain, leg swelling or palpitations PSYCH: SEE HPI PAST MEDICAL HISTORY: Patient Active Problem List Diagnosis Date Noted Iron deficiency anemia due to chronic blood loss 03/13/2025 COVID-19 virus infection 01/25/2022 Seasonal allergies 06/10/2021 Depression 07/04/2019 Anxiety 07/04/2019 SOCIAL HISTORY: Social History Tobacco Use Smoking status: Never Smokeless tobacco: Never Substance Use Topics Alcohol use: Yes FAMILY HISTORY: Family Status Relation Name Status Mother Alive Father Brother (Not Specified) MGM MGF Alive Other cousin Alive No partnership data on file Family History[1] ACTIVE MEDICATIONS: Medications Taking[2] ALLERGIES: House dust, Pollen extracts, and Sulfamethoxazole-trimethoprim PHYSICAL EXAM: Blood pressure 100/56, pulse 98, temperature 36.9 ??C (98.4 ??F), temperature source Oral, height 1.575 m (62 ), weight 68.7 kg (151 lb 6.4 oz), SpO2 99%. Body mass index is 27.69 kg/m??. APPEARANCE: Alert and in no acute distress HEART: RRR with normal S1 and S2, no murmurs, appreciated LUNG: clear to auscultation EXTREMITIES: Extremities warm and well perfused without clubbing, cyanosis, or edema NEURO: Awake, alert and oriented x 3 PSYCH: Mood and affect intact LABS: Lab Results Component Value Date WBC 6.6 06/03/2025 HGB 11.9 06/03/2025 HCT 36.7 06/03/2025 MCV 88.2 06/03/2025 PLT 275 06/03/2025 Lab Results Component Value Date IRON 64 06/03/2025 TIBC 313 06/03/2025 FERRITIN 33 06/03/2025 Lab Results Component Value Date NA 138 02/23/2025 K 4.2 02/23/2025 CL 105 02/23/2025 CO2 26 02/23/2025 GLUCOSE 83 02/23/2025 BUN 10 02/23/2025 CREATININE 0.53 02/23/2025 CALCIUM 9.0 02/23/2025 PROT 7.0 02/23/2025 ALBUMIN 3.7 02/23/2025 BILITOT 0.4 02/23/2025 AST 17 02/23/2025 ALT 19 02/23/2025 ALKPHOS 38 (L) 02/23/2025 EGFR 117 02/23/2025 IMPRESSION: 1. Anxiety 2. Mild episode of recurrent major depressive disorder (CMS/HCC V24) 3. Iron deficiency anemia due to chronic blood loss PLAN: Assessment & Plan 1. Anxiety: Stable. - Continue Celexa 20 mg. 2. Anemia: Improved. - Continue oral iron supplements throughout menstrual cycle until it ceases. - follow up with hematology -lab work next month ordered by hematology 3. Health Maintenance. - Up to date with mammograms, last one in 04/2025. Follow-up - Physical examination in 02/2026. I have obtained verbal consent from Humera Vee prior to the recording. I have advised Antwon Vee that she may refuse the recording and require the recording to be turned off at any time during this encounter. Medical literature provided and reviewed with patient. Patient is to return if symptoms do not improve or get worse. Patient agrees with plan. No orders of the defined types were placed in this encounter. ADDITIONAL ORDERS: None MIRIAM Reyna on 08/18/2025 at 10:26 PM EST [1] Family History Problem Relation Name Age of Onset Other (Other: anxiety) Mother joint problems Throat cancer Father Eczema Brother Thyroid disease Maternal Grandmother Stroke Maternal Grandmother 89 Coronary artery disease Maternal Grandfather stroke, macular degeneration Prostate cancer Other cousin [2] Outpatient Medications Marked as Taking for the 08/18/25 encounter (Office Visit) with MIRIAM Reyna Medication Sig Dispense Refill cetirizine (ZyrTEC) 10 mg tablet Take 10 mg by mouth daily. citalopram (CeleXA) 20 mg tablet Take 1 tablet (20 mg total) by mouth 1 (one) time each day. 90 each 1 ferrous sulfate 325 mg (65 mg iron) EC tablet Take 1 tablet (325 mg total) by mouth 1 (one) time each day with breakfast. Do not crush, chew, or split. 90 tablet 1 levonorgestreL (Liletta) 20.4 mcg/24 hr (8 yrs) 52 mg intrauterine device IUD by intrauterine route1 (one) time. [DISCONTINUED] citalopram (CeleXA) 20 mg tablet Take 1 tablet (20 mg total) by mouth 1 (one) time each day. 90 each 1 documented in this encounter Plan of Treatment Upcoming Encounters Date Type Department Care Team (Late st Contact Info) Description 12/14/2025 2:00 PM EST Office Visit [facility] Hematology Oncology [address] [place] [address] Demetra Hernandez PA [address] [place] [address] 02/23/2026 10:00 AM EDT Office Visit Adult Medicine [facility] [address] [place] [phone] Janeen Vivas PA [address] [place] [address] documented as of this encounter Visit Diagnoses Diagnosis Anxiety- Primary Anxiety state, unspecified Mild episode of recurrent major depressive disorder (CMS/HCC V24) Iron deficiency anemia due to chronic blood loss Iron deficiency anemia secondary to blood loss (chronic) documented in this encounter Discontinued Medications Medication Sig Discontinue Reason Start Date End Da te citalopram (CeleXA) 20 mg tablet Take 1 tablet (20 mg total) by mouth 1 (one) time each day. Reorder 02/20/2025 08/18/2025 documented as of this encounter Historical Medications * This list may reflect changes made after this encounter. levonorgestreL (Liletta) 20.4 mcg/24 hr (8 yrs) 52 mg intrauterine device IUD by intrauterine route 1 (one) time. added in this encounter Care Teams Log Yard Derrick Operator Relationship Specialty Start Date End Date Delmis English MD [address] [place] [address] PCP - General Internal Medicine 05/20/21 documented as of this encounter
--- OUTSIDE RECORDS SUMMARY | 2025-08-19 18:47 | XMS_ITS | Data Portability ---
Author Organization [facility] [email or web address] Like julio césar [facility] Address [address] [place] [address] Care Team Providers Care Warp Dyeing Tender Name Role Phone RACHEL MATHUR Primary Care Provider Assessment No assessment recorded. Plan of Treatment Reminders Order Date Submit Date Provider Last Modified By Organization Details Last Modified Time Details Appointments None recorded . Lab rapid strep group A, throat 024 10/17/19 24 [email or web address] 3 [id number] , [address] [place] [address], [phone], 18:46:41 Referral None recorded . Procedures None recorded . Surgeries None recorded . Imaging None recorded . Medication Orders None recorded . Patient TargetsNo targets recorded. Patient Instructions Encounter Date Encounter Id Patient Instructions Last Modified By Organization Details Last Modified Time 10/17/2023 [id number] sore throat: car e instructions [email or web address] Not available 10/17/2023 18:46:39 viral respirator y infection: care instructions [email or web address] Not available 10/17/2023 18:46:40 Reason for Referral None Reported. Results Created Date Observation Date Name Description Value Unit Range Abnormal Flag Note LastModifiedBy Organization Detail LastModifiedTime 10/17/19 24 10/17/2023 rapid strep group A, throa t Unknown Analyte negati ve Not Available [id number] [address] [place], [address], 10/17/2023 18:30:38 Result Notes None recorded. Problems No Known Problems Medical Equipment None Reported. Allergies No known drug allergies Medications Not known to be on any medication Vitals None Recorded Social History Question Answer Notes LastModified by Organization D etails LastModified Time Have You Had Direct Contact, Or Contact During Intimacy, With Monkeypox Rash, Scabs, Or Body Fluids From A Person With Monkeypox? No [email or web address] Information not available 10/17/2023 Have You Recently Traveled Abroad? No [email or web address] Information not available 10/17/2023 Are You Currently In School? No [email or web address] Information not available 10/17/2023 Sex: Unknown Functional Status Question Answer Note LastModified by Organizat ion Details LastModified Time Do you use any illicit or recreational drugs? No [email or web address] Information not available 10/17/2023 Do you or have you ever used any other forms of tobacco or nicotine? No [email or web address] Information not available 10/17/2023 Are you currently employed? Yes [email or web address] Information not available 10/17/2023 Mental Status None recorded. Family History Relationship Description Onset Age of this Age Resolved Age Notes LastModified by Organization Details LastModified Time Father No current problems or disability [email or web address] Not available 10/17 18:30:19 Mother No current problems or disability Not available 10/17 18:30:19 Medical History No medical history recorded. Gynecological History Statement/Question Response Is there any chance of ? No Obstetrics History GPAL:G 0 P 0 0 0 0 Past Encounters Encounter ID Performer Location Encounter Start Date Encounter Closed Date Diagnosis/Indication Diagnosis SNOMED-CT Code Diagnosis ICD10 Code Diagnosis IMO Codes Diagnosis [place] [id number] [place] [id number] [address] [place] [address] 10/17/2023 18:12:01 10/17/2023 18:48:12 Viral disease 93406249 B34.9 Please return in 3-5 days or sooner if your symptoms worsen or do not improvePle ase go to the ED if you develop the inability to swallow, shortness of breath or chest pain or other symptoms that concern you.Please call with any questions or concernsMa y take tylenol or ibuprofen as prescribed on the box for pain and feversPlea se drink plenty of fluidsPlea se get plenty of rest while recovering from your illnessMay do salt water gargles to help relieve any soreness or scratchine ss in your throat Health Concerns Section Related Observation LastModified by Organization Detai ls LastModified Time None Recorded Concern Status LastModified by Organization Details LastModified Time None Recorded Advance Directives Directive None Recorded Payers Insurance Date Sequence Insurance Name Policy Number Policy Mercer Covered Member ID Mercer Member ID Guarantor Name 10/17/2023 1 [facility] [id number] 1 Humera Lerner [id number] Humera Lerner Notes Date Note Type Note Provider Name and Address Organization Details Recorded Time 10/17/2023 text/html Sore throatRepor jerardo by PatientSore ThroatFor associated symptoms, patient reportssore throat,nasal congestion, andcoughingbut reportsno sputum production,no shortness of breath,no wheezing,no sinus pain,no vomiting,no nausea, andno hoarseness(denies fevers, chills, chest pain, sob, wheezing, abdominal pain, n/v, changes in bowel habits). For source of patient information, patient reportsinformation obtained from patient. For location, patient reportsthroat. For severity, patient reportsmoderate. For quality, patient reportsdull. For onset/timing, patient reports1 weeks. For context, patient reportsno sick contacts. For modifying factors, patient reportsotc medication some relief. MIRIAM Zamora [address] [place], [address], [place] - [facility] 10/17/2023 18:51:20 OBGyn Episode No OBEpisode recorded.
--- OUTSIDE RECORDS SUMMARY | 2025-08-19 18:47 | XMS_ITS | Clinical Summary ---
Author Organization [facility] [address] [facility][1] lding Address [address] [place] [address] Phone Care Team Providers Care Commercial Portfolio Manager Name Role Phone Delmis Enlgish MD Primary Care Prov ider Allergies Active Allergy Reactions Criticality Noted Date Comments House Dust Runny nose 07/26/2022 Pollen Extracts Runny nose 01/04/2021 Seasonal allergies Sulfamethoxazole-Trimetho prim Dermatitis,Rash 06/14/2014 Medications cetirizine (ZyrTEC) 10 mg tablet Take 10 mg by mouth daily. Active levonorgestreL (MIRENA) 21 mcg/24hr (up to 8 yrs) 52 mg IUD 1 Device (1 each total) by intrauterine route 1 (one) time. HORMONAL IUD INSERTED ON 06/03/25 Active ferrous sulfate 325 mg (65 mg iron) EC tablet Take 1 tablet (325 mg total) by mouth 1 (one) time each day with breakfast. Do not crush, chew, or split. 90 tablet 1 06/08/20 25 026 Active levonorgestreL (Liletta) 20.4 mcg/24 hr (8 yrs) 52 mg intrauterine device IUD by intrauterine route 1 (one) time. Active citalopram (CeleXA) 20 mg tablet Take 1 tablet (20 mg total) by mouth 1 (one) time each day. 90 each 1 08/18/20 25 026 Active citalopram (CeleXA) 20 mg tablet Take 1 tablet (20 mg total) by mouth 1 (one) time each day. 90 each 1 02/21/20 025 Discontin ued(Reord er) Active Problems Problem Noted Date Diagnosed Date Iron deficiency anemia due to chronic blood loss 03/13/2025 COVID-19 virus infection 01/25/2022 Overview (08/11/2024): 01/23/2022 Seasonal allergies 06/10/2021 Depression 07/04/2019 Anxiety 07/04/2019 Encounters Date Type Department Care Team Description 08/18/2025 12:30 PM EST Office Visit Adult Medicine [place] [address] [place] [phone] Janeen Vivas PA Anxiety (Primary Dx); Mild episode of recurrent major depressive disorder (CMS/HCC V24); Iron deficiency anemia due to chronic blood loss 06/08/2025 9:30 AM EDT Office Visit [facility] Hematology Oncology [address] [place] [phone] Demetra Hernandez PA Iron deficiency anemia due [...] Surgery Date Site/Laterality Comments APPENDECTOMY 1994 PROCEDURE: [place] APPENDECTOMY EYE SURGERY 2009 PROCEDURE: [place] TRABECULOPLASTY BY LASER SURGERY Medical History Medical [...] F) 08/18/2025 12:36 PM EST Respiratory Rate 16 03/20/2025 1:04 PM EDT Oxygen Saturation 99% 08/18/2025 12:36 PM EST Inhaled Oxygen Concentration - - Weight 68.7 kg (151 lb 6.4 oz) 08/18/2025 12:36 PM EST Height 157.5 cm (5' 2 ) 08/18/2025 12:36 PM EST Body Mass Index 27.69 08/18/2025 12:36 PM EST Plan of Treatment Upcoming Encounters Date Type Department Care Team (Late st Contact Info) Description 12/14/2025 2:00 PM EST Office Visit [facility] Hematology Oncology [address] [place] [phone] Demetra Hernandez PA [address] [place] [address] 02/23/2026 10:00 AM EDT Office Visit Adult Medicine [facility] [address] [place] [phone] Janeen Vivas PA [address] [place] [address] Health Maintenance Due Date Last Done Comments Hepatitis B Vaccines (1 of 3 - 19+ 3-dose series) 02/18/2000 HPV Vaccines (1 - 3-dose SCDM series) 02/18/2008 HIV Screening 09/23/2022 Hepatitis C Screening 09/23/2022 Social Influencers of Health Screening 09/23/2022 Cervical Cancer Screening: Pap Smear 11/30/2023 11/30/2020 Depression Screening 10/15/2024 COVID-19 Vaccine ( season) 2025 07/04/2023, 08/11/2021, 01/31/2021, Additional history exists Influenza Vaccine (#1) 2025 , 07/26/2022, 07/01/2020, Additional history exists Breast Cancer Screening 04/25/2026 04/25/2025 Cholesterol Screening (Lipid Panel) 02/23/2030 02/23/2025, 02/08/2024, [...] LAB HEMETOLOGY METHOD 06/03/2025 6:15 PM EDT [facility] RBC 4.20 3.80 - 4.80 M/mcL LAB HEMETOLOGY METHOD 06/03/2025 6:15 PM EDT [facility] Hemoglobin 11.9 11.5 - 16.0 g/dL LAB HEMETOLOGY METHOD 06/03/2025 6:15 PM EDT [facility] Hematocrit 36.7 35.0 - 47.0 % LAB HEMETOLOGY METHOD 06/03/2025 6:15 PM EDT [facility] MCV 88.2 79.0 - 98.0 FL LAB HEMETOLOGY METHOD 06/03/2025 6:15 PM EDT [facility] MCH 28.6 27.0 - 32.0 pcg LAB HEMETOLOGY METHOD 06/03/2025 6:15 PM EDT [facility] MCHC 32.4 32.0 - 37.0 g/dL LAB HEMETOLOGY METHOD 06/03/2025 6:15 PM EDT [facility] RDW 15.6(H) 11.0 - 15.0 % LAB HEMETOLOGY METHOD 06/03/2025 6:15 PM EDT [facility] Platelets 275 130 - 400 K/mcL LAB HEMETOLOGY METHOD 06/03/2025 6:15 PM EDT [facility] MPV 10.8 7.0 - 11.0 FL LAB HEMETOLOGY METHOD 06/03/2025 6:15 PM EDT [facility] NRBC 0.0 <1.0 % LAB HEMETOLOGY METHOD 06/03/2025 6:15 PM EDT [facility] NRBC Absolute 0.00 <0.10 K/mcL LAB HEMETOLOGY METHOD 06/03/2025 6:15 PM EDT [facility] Neutrophils Relative 53.7 % LAB HEMETOLOGY METHOD 06/03/2025 6:15 PM EDT [facility] Lymphocytes Relative 35.1 % LAB HEMETOLOGY METHOD 06/03/2025 6:15 PM EDT [facility] Monocytes Relative 6.4 % LAB HEMETOLOGY METHOD 06/03/2025 6:15 PM EDT [facility] Eosinophils Relative 4.3 % LAB HEMETOLOGY METHOD 06/03/2025 6:15 PM EDT [facility] Basophils Relative 0.3 % LAB HEMETOLOGY METHOD 06/03/2025 6:15 PM EDT [facility] Immature Granulocytes Relative 0.2 % LAB HEMETOLOGY METHOD 06/03/2025 6:15 PM EDT [facility] Neutrophils Absolute 3.53 1.50 - 7.00 K/mcL LAB HEMETOLOGY METHOD 06/03/2025 6:15 PM EDT [facility] Lymphocytes Absolute 2.30 1.00 - 5.00 K/mcL LAB HEMETOLOGY METHOD 06/03/2025 6:15 PM EDT [facility] Monocytes Absolute 0.42 0.20 - 1.00 K/mcL LAB HEMETOLOGY METHOD 06/03/2025 6:15 PM EDT [facility] Eosinophils Absolute 0.28 0.00 - 0.50 K/mcL LAB HEMETOLOGY METHOD 06/03/2025 6:15 PM EDT [facility] Basophils Absolute 0.02 0.00 - 0.20 K/mcL LAB HEMETOLOGY METHOD 06/03/2025 6:15 PM EDT [facility] Immature Granulocytes Absolute 0.01 0.00 - 0.03 K/mcL LAB HEMETOLOGY METHOD 06/03/2025 6:15 PM EDT [facility] Blood Venous blood specimen / Unknown Venipuncture / Unknown 06/03/2025 4:15 PM EDT 06/03/2025 4:15 PM EDT us Demetra PINEDA LAB BLOOD ORDERABLES Final Re sult [facility] [address] [place] [address], * Iron and TIBC (06/03/2025 4:15 PM EDT) [facility] Signature Iron 64 40 - 150 mcg/dL LAB CHEMISTRY METHOD 06/03/2025 5:59 PM EDT [facility] TIBC 313 250 - 450 mcg/dL LAB CHEMISTRY METHOD 06/03/2025 5:59 PM EDT [facility] Iron Saturation 20 15 - 50 % LAB CHEMISTRY METHOD 06/03/2025 5:59 PM EDT [facility] Blood Venous blood specimen / Unknown Venipuncture / Unknown 06/03/2025 4:15 PM EDT 06/03/2025 4:15 PM EDT us Demetra PINEDA LAB BLOOD ORDERABLES Final Re sult [facility] [address] [place] [address], [place] [phone] * Reticulocyte count (06/03/2025 4:15 PM EDT) Retic Ct Abs 0.030 0.030 - 0.090 M/mcL LAB HEMETOLOGY METHOD 06/03/2025 6:15 PM EDT [facility] Retic Ct Pct 0.7 0.7 - 1.7 % LAB HEMETOLOGY METHOD 06/03/2025 6:15 PM EDT [facility] Immature Retic Fract 2.5 2.3 - 15.9 % LAB HEMETOLOGY METHOD 06/03/2025 6:15 PM EDT [facility] Reticulocyte Hemoglobin 33.5 >29.0 pcg LAB HEMETOLOGY METHOD 06/03/2025 6:15 PM EDT [facility] Blood Venous blood specimen / Unknown Venipuncture / Unknown 06/03/2025 4:15 PM EDT 06/03/2025 4:15 PM EDT us Demetra PINEDA LAB BLOOD ORDERABLES Final Re sult [facility] [address] [place] [address], [place] [phone] * Ferritin (06/03/2025 4:15 PM EDT) [facility] Ferritin 33 8 - 252 ng/mL LAB CHEMISTRY METHOD 06/03/2025 5:54 PM EDT [facility] Blood Venous blood specimen / Unknown Venipuncture / Unknown 06/03/2025 4:15 PM EDT 06/03/2025 4:15 PM EDT us Demetra PINEDA LAB BLOOD ORDERABLES Final Re sult [facility] [address] [place] [address], [place] [phone] * (ABNORMAL) Lipid panel with reflex to direct LDL (02/23/2025 9:06 AM EDT) [facility] Cholesterol 209(H) 0 - 200 mg/dL LAB CHEMISTRY METHOD 02/23/2025 1:37 PM EDT [facility] Triglycerides 63 0 - 150 mg/dL LAB CHEMISTRY METHOD 02/23/2025 1:37 PM EDT [facility] HDL 65 >=40 mg/dL LAB CHEMISTRY METHOD 02/23/2025 1:37 PM EDT [facility] LDL Calculated 131(H) 0 - 100 mg/dL LAB CHEMISTRY METHOD 02/23/2025 1:37 PM EDT [facility] VLDL Cholesterol Darryl 12.6 mg/dL LAB CHEMISTRY METHOD 02/23/2025 1:37 PM EDT [facility] Non HDL Chol. (LDL+VLDL) 144 <145 mg/dL LAB CHEMISTRY METHOD 02/23/2025 1:37 PM EDT [facility] Chol/HDL Ratio 3.2 0.0 - 4.4 LAB CHEMISTRY METHOD 02/23/2025 1:37 PM EDT [facility] Blood Venous blood specimen / Unknown Venipuncture / Unknown 02/23/2025 9:06 AM EDT 02/23/2025 9:10 AM EDT Janeen PINEDA LAB BLOOD ORDERABLES Final Result [facility] [address] [place] [address], * Pap Smear (11/30/2020) HM Pap smear abstracted,no interpretation us Historical Provider HEALTH MAINTENANCE Final Result from Last 3 Months or Most Recently Relevant to Health Maintenance Insurance [facility] Care Teams Commercial Portfolio Manager Relationship Specialty Start Date End Date Delmis English MD [address] [place] [address] PCP - General Internal Medicine 05/20/21
== END 2025-08-19 15:58 | disposition home or self-care (01) ==
LOC: HO.HMGAL 15:57
PROVIDERS: PCP Internal Medicine; Visit Provider Registered Nurse Emergency
DX: J30.89 Other allergic rhinitis (principal)
CPT/HCPCS: 95117; 95165

== ENCOUNTER 2025-09-23 13:14 | Outpatient (AMB) | payer OTHER, SELFPAY ==
--- OUTSIDE RECORDS SUMMARY | 2025-09-23 20:28 | XMS_ITS | Encounter Summary ---
Author Organization [facility] Address [address] [place] [address] Care Team Providers Care Boiler Riveter Name Role Phone Delims English MD Primary Care Prov ider Encounter Details Date Type Department Care Team (Late st Contact Info) Description 09/17/2025 Results Follow-Up [facility] Hematology Oncology [address] [place] [phone] Demetra Hernandez PA [address] [place] [address] Social History Tobacco Use Types Packs/Day Years [...] PM EDT documented as of this encounter Plan of Treatment Upcoming Encounters Date Type Department Care Team (Late st Contact Info) Description 12/14/2025 2:00 PM EST Office Visit [facility] Hematology Oncology [address] [place] [phone] Demetra Hernandez PA [address] [place] [address] 02/23/2026 10:00 AM EDT Office Visit Adult Medicine - [place] [address] [place] [phone] Janeen Vivas PA [address] [place] [address] documented as of this encounter Visit Diagnoses Not on filedocumented in this encounter Care Teams Boiler Riveter Relationship Specialty Start Date End Date Delmis English MD [address] [place] [address] PCP - General Internal Medicine 05/20/21 documented as of this encounter
--- OUTSIDE RECORDS SUMMARY | 2025-09-23 20:29 | XMS_ITS | Clinical Summary ---
Author Organization [facility] [address] [facility] lding Address [address] [facility] [place] [address] Phone Care Team Providers Care Rigger Helper Name Role Phone Delmis English MD Primary [...] chew, or split. 90 tablet 1 5 026 Active levonorgestreL (Liletta) 20.4 mcg/24 hr (8 yrs) 52 mg intrauterine device IUD by intrauterine route 1 (one) time. Active citalopram (CeleXA) 20 mg tablet Take 1 tablet (20 mg total) by mouth 1 (one) time each day. 90 each 1 5 05/03/2 026 Active Active Problems Problem Noted Date Diagnosed Date Iron deficiency anemia due to chronic blood loss 03/13/2025 COVID-19 virus infection 01/25/2022 Overview (08/11/2024): 01/23/2022 Seasonal allergies 06/10/2021 Depression 07/04/2019 Anxiety 07/04/2019 Encounters Date Type Department Care Team Description 09/17/2025 Results Follow-Up [facility] Hematology Oncology [address] [place] [phone] Demetra Hernandez PA 09/07/2025 1:10 PM EST Lab Draw Station - [address] [phone] Iron deficiency anemia due to chronic blood loss 08/18/2025 12:30 PM EST Office Visit Adult Medicine - [address] [phone] Janeen Vivas PA Anxiety (Primary Dx); Mild episode of recurrent major depressive disorder (CMS/HCC V24); Iron deficiency anemia due to chronic blood loss from Last 3 Months Immunizations Immunization Administration Dates Next Due Influenza Quadravalent, MDCK , 0.5ml, preservative free (Flucelvax) 6mo and older 07/26/2022,07/01/2020 Influenza trivalent, 0.5mL, preservative free (Fluarix; FluLaval; Fluzone) ages 6mo and older (Afluria) 3 years and older 07/04/2023,07/20/2019 Influenza trivalent, with pr eservative (Fluzone; Afluria) 6mo and older 08/13/2014 Rooster Teeth SARS-CoV-2 COVID-19, mRNA, LNP-S, preservative free 01/31/2021,01/09/2021 Tdap Tetanus diptheria acell ular pertussis (Boostrix; Adacel) 7yo and older 02/07/2022 Surgical History Surgery Date Site/Laterality Comments APPENDECTOMY 1994 PROCEDURE: [place] APPENDECTOMY EYE SURGERY 2009 PROCEDURE: [place] TRABECULOPLASTY BY LASER SURGERY Medical History Medical [...] Orientation Straight 03/13/2025 2: 10 PM EDT Last Filed Vital Signs Vital Sign Reading [...] Description 12/14/2025 2:00 PM EST Office Visit [facility] Hematology Oncology [address] [place] [phone] Demetra Hernandez PA [address] [place] [address] 02/23/2026 10:00 AM EDT Office Visit Adult Medicine [facility] [address] [place] [phone] Janeen Vivas PA [address] [place] [address] Health Maintenance Due Date Last Done Comments Hepatitis B Vaccines (1 of 3 - 19+ 3-dose series) 02/18/2000 HPV Vaccines (1 - 3-dose SCDM series) 02/18/2008 HIV Screening 09/23/2022 Hepatitis C Screening 09/23/2022 Social Influencers of Health Screening 09/23/2022 Cervical Cancer Screening: Pap Smear 11/30/2023 11/30/2020 Depression Screening 10/15/2024 Breast Cancer Screening 04/25/2026 04/25/2025 Cholesterol Screening (Lipid Panel) 02/23/2030 02/23/2025, 02/08/2024, 02/08/2024 DTaP,Tdap,and Td Vaccines (2 - Td or Tdap) 02/08/2032 02/07/2022 RSV Immunization Adult Patients (1 - 1-dose 75+ series) 02/18/2056 COVID-19 Vaccine Completed 09/07/2025, , 08/11/2021, Additional history exists Influenza Vaccine Completed 09/07/2025, , 07/26/2022, Additional history exists HIB Vaccines Aged Out No longer eligi [...] Diagnosis Comments CBC WITH AUTO DIFFERENTIAL Routine 09/07/2025 1:08 PM EST Iron deficiency anemia due to chronic blood loss IRON AND TIBC Routine 09/07/2025 1:08 PM EST Iron deficiency anemia due to chronic blood loss FERRITIN Routine 09/07/2025 1:08 PM EST Iron deficiency anemia due to chronic blood loss CBC AND DIFFERENTIAL Routine 09/07/2025 1:08 PM EST Iron deficiency anemia due to chronic blood loss LIPID PANEL WITH REFLEX TO DIRECT LDL Routine 02/23/2025 9:06 AM EDT Routine general medical examination at a health care facility HM PAP SMEAR Routine 11/30/2020 from Last 3 Months or Most Recently Relevant to Health Maintenance Results * CBC auto differential (09/07/2025 1:08 PM EST) WBC 7.5 4.8 - 10.8 K/mcL LAB HEMETOLOGY METHOD 09/07/2025 2:15 PM [facility] RBC 4.20 3.80 - 4.80 M/mcL LAB HEMETOLOGY METHOD 09/07/2025 2:15 PM [facility] Hemoglobin 12.6 11.5 - 16.0 g/dL LAB HEMETOLOGY METHOD 09/07/2025 2:15 PM [facility] Hematocrit 37.9 35.0 - 47.0 % LAB HEMETOLOGY METHOD 09/07/2025 2:15 PM [facility] MCV 90.7 79.0 - 98.0 FL LAB HEMETOLOGY METHOD 09/07/2025 2:15 PM [facility] MCH 30.1 27.0 - 32.0 pcg LAB HEMETOLOGY METHOD 09/07/2025 2:15 PM [facility] MCHC 33.2 32.0 - 37.0 g/dL LAB HEMETOLOGY METHOD 09/07/2025 2:15 PM [facility] RDW 12.6 11.0 - 15.0 % LAB HEMETOLOGY METHOD 09/07/2025 2:15 PM [facility] Platelets 290 130 - 400 K/mcL LAB HEMETOLOGY METHOD 09/07/2025 2:15 PM [facility] MPV 10.8 7.0 - 11.0 FL LAB HEMETOLOGY METHOD 09/07/2025 2:15 PM [facility] NRBC 0.0 <1.0 % LAB HEMETOLOGY METHOD 09/07/2025 2:15 PM [facility] NRBC Absolute 0.00 <0.10 K/mcL LAB HEMETOLOGY METHOD 09/07/2025 2:15 PM [facility] Neutrophils Relative 66.1 % LAB HEMETOLOGY METHOD 09/07/2025 2:15 PM [facility] Lymphocytes Relative 25.6 % LAB HEMETOLOGY METHOD 09/07/2025 2:15 PM [facility] Monocytes Relative 5.1 % LAB HEMETOLOGY METHOD 09/07/2025 2:15 PM [facility] Eosinophils Relative 2.4 % LAB HEMETOLOGY METHOD 09/07/2025 2:15 PM [facility] Basophils Relative 0.4 % LAB HEMETOLOGY METHOD 09/07/2025 2:15 PM [facility] Immature Granulocytes Relative 0.4 % LAB HEMETOLOGY METHOD 09/07/2025 2:15 PM [facility] Neutrophils Absolute 4.97 1.50 - 7.00 K/mcL LAB HEMETOLOGY METHOD 09/07/2025 2:15 PM [facility] Lymphocytes Absolute 1.92 1.00 - 5.00 K/mcL LAB HEMETOLOGY METHOD 09/07/2025 2:15 PM [facility] Monocytes Absolute 0.38 0.20 - 1.00 K/mcL LAB HEMETOLOGY METHOD 09/07/2025 2:15 PM EST [facility] Eosinophils Absolute 0.18 0.00 - 0.50 K/[facility] LAB HEMETOLOGY METHOD 09/07/2025 2:15 PM EST [facility] Basophils Absolute 0.03 0.00 - 0.20 K/mcL LAB HEMETOLOGY METHOD 09/07/2025 2:15 PM EST [facility] Immature Granulocytes Absolute 0.03 0.00 - 0.03 K/[facility] LAB HEMETOLOGY METHOD 09/07/2025 2:15 PM EST [facility] Blood Venous blood specimen / Unknown Venipuncture / Unknown 09/07/2025 1:08 PM EST 09/07/2025 1:08 PM EST us Demetra PINEDA LAB BLOOD ORDERABLES Final Re sult [facility] [address] [place] [address], [place] [phone] * Iron and TIBC (09/07/2025 1:08 PM EST) Iron 140 40 - 150 mcg/dL 09/07/2025 4:06 PM EST [facility] TIBC 282 250 - 450 mcg/dL 09/07/2025 4:06 PM EST [facility] Iron Saturation 50 15 - 50 % 4:06 PM EST [facility] Blood Venous blood specimen / Unknown Venipuncture / Unknown 09/07/2025 1:08 PM EST 09/07/2025 1:08 PM EST Demetra PINEDA LAB BLOOD ORDERABLES Final Re sult [facility] [address] [place] [address], [place] [phone] * Ferritin (09/07/2025 1:08 PM EST) Pathologist [facility] Ferritin 30 7 - 271 ng/mL 09/07/2025 4:05 PM EST [facility] Blood Venous blood specimen / Unknown Venipuncture / Unknown 09/07/2025 1:08 PM EST 09/07/2025 1:08 PM EST us Demetra PINEDA LAB BLOOD ORDERABLES Final Re sult [facility] [address] [place] [address], [place] [phone] * (ABNORMAL) Lipid panel with reflex to direct LDL (02/23/2025 9:06 AM EDT) [facility] Signature Cholesterol 209(H) 0 - 200 mg/dL LAB CHEMISTRY METHOD 02/23/2025 1:37 PM EDT [facility] Triglycerides 63 0 - 150 mg/dL LAB CHEMISTRY METHOD 02/23/2025 1:37 PM EDT [facility] HDL 65 >=40 mg/dL LAB CHEMISTRY METHOD 02/23/2025 1:37 PM EDT [facility] LDL Calculated 131(H) 0 - 100 mg/dL LAB CHEMISTRY METHOD 02/23/2025 1:[address] [facility] LAB VLDL Cholesterol Darryl 12.6 mg/dL LAB CHEMISTRY METHOD 02/23/2025 1:37 PM EDT [facility] Non HDL Chol. (LDL+VLDL) 144 <145 mg/dL LAB CHEMISTRY METHOD 02/23/2025 1:[address] [facility] Chol/HDL Ratio 3.2 0.0 - 4.4 LAB CHEMISTRY METHOD 02/23/2025 1:[address] [facility] Blood Venous blood specimen / Unknown Venipuncture / Unknown 02/23/2025 9:06 AM EDT 02/23/2025 9:10 AM EDT us Janeen PINEDA LAB BLOOD ORDERABLES Final Result [facility] [address] [place] [address], * Pap Smear (11/30/2020) HM Pap smear abstracted,no interpretation us Historical Provider MD HEALTH MAINTENANCE Final Result from Last 3 Months or Most Recently Relevant to Health Maintenance Insurance [facility] Care Teams Rigger Helper Relationship Specialty Start Date End Date Delmis English MD [address] [place] [id number] PCP - General Internal Medicine 05/20/21
== END 2025-09-23 13:14 | disposition home or self-care (01) ==
LOC: HO.HMGAL 13:14
PROVIDERS: PCP Internal Medicine; Visit Provider Registered Nurse Emergency
DX: J30.89 Other allergic rhinitis (principal)
CPT/HCPCS: 95117; 95165